=== PATIENT | female | born 1945 | race Caucasian/White ===

== ENCOUNTER 2018-08-09 09:26 | Emergency (ER) | payer MEDICARE, BC ==
--- NOTE | 2018-08-09 09:31 | EDM.PDOC ---
ED HPI GENERAL MEDICAL PROBLEM - General Chief Complaint: Bite:Animal, Insect Stated Complaint: CAT BITE Time Seen by Provider: 08/09/18 09:28 Source of Information: Reports: Patient, Family, RN, RN Notes Reviewed History Limitations: Reports: No Limitations - History of Present Illness INITIAL COMMENTS - FREE TEXT/NARRATIVE: Patient presents to the ED at [facility] for the evaluation of a cat bite to the palmar surface of the left hand. Patient states her found the cat with a jar stuck over its head. After the patient was able to removed the jar, the cat immediately bit her left hand. She did wash the affected area and put triple abx ointment on top. The hand has continued to swell and impede ROM 2 /2 to swelling. The cat is unknown to the patient. Immunization status is unknown to the patient. Left Hand Pain Score (Numeric/FACES): 1 - Related Data Allergies Allergy/AdvReac Type Severity Reaction Status Date / Time ezetimibe [From Zetia] Allergy Other Verified 08/09/18 09:40 simvastatin [From Zocor] Allergy Hives Verified 08/09/18 09:40 bupropion [From Wellbutrin] AdvReac Hypotension Verified 08/09/18 09:40 Home Meds: Home Meds Anastrozole [Arimidex] 1 tab PO DAILY 06/15/16 [History] Omeprazole 40 mg PO DAILY 06/15/16 [History] Amoxicillin/Clavulanate K [Augmentin 875-125 MG] 1 tab PO BID 10 Days #20 tablet 08/09/18 [Rx] Citalopram [Citalopram HBr] 20 mg PO DAILY 08/09/18 [History] Mirtazapine [Remeron] 15 mg PO BEDTIME 08/09/18 [History] Past Medical History HEENT History: Reports: Cataract Cardiovascular History: Reports: High Cholesterol Other Cardiovascular History: DYSLIPIDEMIA Respiratory History: Reports: None Gastrointestinal History: Reports: Colon Polyp, GERD Genitourinary History: Reports: None 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: Musculoskeletal History: Reports: None Psychiatric History: Reports: Anxiety, Depression Endocrine/Metabolic History: Reports: Diabetes, Type II Hematologic History: Reports: None Immunologic History: Reports: None Oncologic (Cancer) History: Reports: Breast Other Oncologic History: RIGHT BREAST CA Dermatologic History: Reports: Eczema - Past Surgical History HEENT Surgical History: Reports: Cataract Surgery, Other (See Below) Female Surgical History: Reports: Cervical Conization, LEEP Musculoskeletal Surgical History: Reports: Other (See Below) Social & Family History - Caffeine Use Caffeine Use: Reports: Coffee ED ROS GENERAL - Review of Systems Review Of Systems: See Below Constitutional: Denies: Fever, Chills Respiratory: Denies: Shortness of Breath, Cough Cardiovascular: Denies: Chest Pain, Palpitations GI/Abdominal: Denies: Abdominal Pain, Nausea, Vomiting Skin: Reports: Erythema, Wound Neurological: Reports: No Symptoms. Denies: Numbness, Paresthesia, Tingling ED EXAM, ANIMAL BITE - Physical Exam Exam: See Below Exam Limited By: No Limitations General Appearance: Alert, No Apparent Distress Respiratory/Chest: No Respiratory Distress, Lungs Clear, Normal Breath Sounds Cardiovascular: Normal Peripheral Pulses, Regular Rate, Rhythm Peripheral Pulses: 2+: Radial (L), Radial (R) GI/Abdominal: Normal Bowel Sounds, Soft, Non-Tender Extremities: Increased Warmth, Redness, Other (swelling of left hand; puncture wounds intact; no evidence of infection; area warm; no drainage) Neurological: Alert, Oriented Skin Exam: Normal Color, Warm/Dry Lymphadenopathy: Bilateral: No Adenopathy Course - Vital Signs Last Recorded V/S: Last Vital Signs Temp 37.2 C 08/09/18 09:28 Pulse 86 08/09/18 09:28 Resp 16 08/09/18 09:28 BP 142/69 H 08/09/18 09:28 Pulse Ox 97 08/09/18 09:28 - Orders/Labs/Meds Orders: Active Orders 24 hr Category Date Time Status Vaccines to be Administered [RC] PER UNIT ROUTINE Care 08/09/18 09:50 Active Vaccines to be Administered [RC] PER UNIT ROUTINE Care 08/09/18 10:11 Ordered Rabies Vaccine (Ta) [RabAvert] Med 08/09/18 10:11 Once 2.5 unit IM .ONCE ONE Meds: Medications Discontinued Medications Generic Name Dose Route Start Last Admin Trade Name Freq PRN Reason Stop Dose Admin Diphtheria/Tetanus/Acell Pertussis 0.5 ml 08/09/18 09:50 Adacel IM 08/09/18 09:51 .ONCE ONE Rabies Immune Globulin 1,500 unit 08/09/18 10:06 Hyperrab S/D IM 08/09/18 10:07 ONETIME ONE Departure - Departure Time of Disposition: 09:44 Disposition: Home, Self-Care 01 Condition: Good Clinical Impression: Cat bite of hand Qualifiers: Encounter type: initial encounter Laterality: left Qualified Code(s): S61.452A - Open bite of left hand, initial encounter - Discharge Information *PRESCRIPTION DRUG MONITORING PROGRAM REVIEWED*: Not Applicable *COPY OF PRESCRIPTION DRUG MONITORING REPORT IN PATIENT CNOSTANTINO: Not Applicable Prescriptions: Amoxicillin/Clavulanate K [Augmentin 875-125 MG] 1 tab PO BID 10 Days #20 tablet Instructions: Animal Bite Referrals: Bianka Mcmillan, [Primary Care Provider] - Forms: ED Department Discharge Additional Instructions: 1. Stay well hydrated and rest 2. Take antibiotics for the full coarse, even if you are feeling better 3. See Dr. Mcmillan next week for a recheck to make sure everything is going well 4. You will need to return to [facility] on August 12, August 16, and August 23 for the remainder of the rabies injections - Problem List Review Problem List Initiated/Reviewed/Updated: Yes - My Orders Last 24 Hours: My Active Orders 08/09/18 09:50 Vaccines to be Administered [RC] PER UNIT ROUTINE 08/09/18 10:11 Vaccines to be Administered [RC] PER UNIT ROUTINE Rabies Vaccine (Ta) [RabAvert] 2.5 unit IM .ONCE ONE - Assessment/Plan Last 24 Hours: My Active Orders 08/09/18 09:50 Vaccines to be Administered [RC] PER UNIT ROUTINE 08/09/18 10:11 Vaccines to be Administered [RC] PER UNIT ROUTINE Rabies Vaccine (Ta) [RabAvert] 2.5 unit IM .ONCE ONE Assessment:: Cat bite Plan: Discussed exam findings with patient. Per guidelines, will start patient on Augmentin BID for 10 days. Recommend taking a probiotic. Follow up with PCP next week for a recheck, sooner if problems.
[2018-08-09 09:39] VITALS: BP 142/69
[2018-08-09] MEDS ORDERED: Diphtheria,Pertussis(Acell),Tetanus Vaccine 0.5 ML Syringe IM ONE (09:50)
[2018-08-09] MEDS ORDERED: Rabies Immune Globulin PF 150 Units/ML 10 ML SDV IM ONE (10:06)
[2018-08-09] MEDS ORDERED: Rabies Vaccine (Avian) 2.5 Unit Inj Kit IM ONE (10:11)
== END 2018-08-09 10:46 | disposition home or self-care (01) ==
LOC: VM.ED 09:26
DX: S61.452A Open bite of left hand, initial encounter (principal); Z23 Encounter for immunization; F41.9 Anxiety disorder, unspecified; F32.9 Major depressive disorder, single episode, unspecified; E11.9 Type 2 diabetes mellitus without complications; Z79.899 Other long term (current) drug therapy; Z88.8 Allergy status to other drugs, medicaments and biological substances; W55.01XA Bitten by cat, initial encounter
CPT/HCPCS: 90375; 90471; 90675; 90715; 96372; 99283

== ENCOUNTER 2018-09-16 22:10 | Emergency (ER) | payer MEDICARE, BC ==
[2018-09-16] MEDS ORDERED: Sodium Chloride 0.9% 10 ML Syringe FLUSH PRN (22:23)
--- NOTE | 2018-09-16 22:39 | EDM.PDOC ---
ED HPI GENERAL MEDICAL PROBLEM - General Chief Complaint: Neurological Problem Time Seen by Provider: 09/16/18 22:10 Source of Information: Reports: Patient History Limitations: Reports: No Limitations - History of Present Illness INITIAL COMMENTS - FREE TEXT/NARRATIVE: PtBeny presents to ER with complaints of severe L sided upper and lower extremity weakness and paresthesia. States that the symptoms started at 2044. She states that she was walking at onset, stumbled and fell. She states that she was able to get to her chair. She states that the symptoms began to resolve, but she called 911. She states that the symptoms got worse again while she was waiting for EMS [place] No head trauma. No chest pain or shortness of breath. Denies any history of prior CVA or other neurological problems. She is not anticoagulated. She has been alert and oriented. Denies any nausea or vomiting. Onset: Today Onset Date: 09/16/18 Onset Time: 20:45 Location: Reports: Head, Upper Extremity, Left, Lower Extremity, Left, Generalized Associated Symptoms: Reports: Weakness - Related Data Allergies Allergy/AdvReac Type Severity Reaction Status Date / Time ezetimibe [From Zetia] Allergy Other Verified 09/16/18 22:36 simvastatin [From Zocor] Allergy Hives Verified 09/16/18 22:36 bupropion [From Wellbutrin] AdvReac Hypotension Verified 09/16/18 22:36 Home Meds: Home Meds Anastrozole [Arimidex] 1 tab PO DAILY 06/15/16 [History] Omeprazole 40 mg PO DAILY 06/15/16 [History] Citalopram [Citalopram HBr] 20 mg PO DAILY 08/09/18 [History] Mirtazapine [Remeron] 15 mg PO BEDTIME 08/09/18 [History] Vits A,C,E/Lutein/Minerals [Vision Formula with Lutein Tab] 1 each PO DAILY 11/01 [History] Past Medical History HEENT History: Reports: Cataract Cardiovascular History: Reports: High Cholesterol Other Cardiovascular History: DYSLIPIDEMIA Respiratory History: Reports: None Gastrointestinal History: Reports: Colon Polyp, GERD Genitourinary History: Reports: 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 History: Reports: None Psychiatric History: Reports: Anxiety, Depression Endocrine/Metabolic History: Reports: Diabetes, Type II Hematologic History: Reports: None Immunologic History: Reports: None Oncologic (Cancer) History: Reports: Breast Other Oncologic History: RIGHT BREAST CA Dermatologic History: Reports: Eczema - Past Surgical History Head Surgeries/Procedures: Reports: None HEENT Surgical History: Reports: Cataract Surgery, Other (See Below) Female Surgical History: Reports: Cervical Conization, LEEP Neurological Surgical History: Reports: None Musculoskeletal Surgical History: Reports: Other (See Below) Social & Family History - Caffeine Use Caffeine Use: Reports: Coffee ED ROS GENERAL - Review of Systems Review Of Systems: See Below Constitutional: Reports: No Symptoms HEENT: Reports: No Symptoms Respiratory: Reports: No Symptoms Cardiovascular: Reports: No Symptoms Endocrine: Reports: No Symptoms GI/Abdominal: Reports: No Symptoms : Reports: No Symptoms Musculoskeletal: Reports: No Symptoms Skin: Reports: No Symptoms Neurological: Reports: Paresthesia Psychiatric: Reports: No Symptoms Hematologic/Lymphatic: Reports: No Symptoms Immunologic: Reports: No Symptoms ED EXAM, GENERAL - Physical Exam Exam: See Below Exam Limited By: No Limitations General Appearance: Alert, WD/WN, No Apparent Distress Eye Exam: Bilateral Eye: EOMI, Globe Laceration, Normal Fundi, PERRL Ears: Normal External Exam, Hearing Grossly Normal Throat/Mouth: Normal Inspection, Normal Lips, Normal Teeth, Normal Gums, Normal Oropharynx, Normal Voice, No Airway Compromise Head: Atraumatic, Normocephalic Neck: Normal Inspection, Supple, Non-Tender, Full Range of Motion Respiratory/Chest: No Respiratory Distress, Lungs Clear, Normal Breath Sounds, No Accessory Muscle Use, Chest Non-Tender Cardiovascular: Normal Peripheral Pulses, Regular Rate, Rhythm, No Edema, No Gallop, No JVD, No Murmur, No Rub Peripheral Pulses: 4+: Radial (L), Radial (R), Posterior Tibial (L), Posterior Tibial (R) GI/Abdominal: Normal Bowel Sounds, Soft, Non-Tender, No Organomegaly, No Distention, No Mass (Female) Exam: Deferred Rectal (Female) Exam: Deferred Back Exam: Normal Inspection, Full Range of Motion, NT Extremities: Normal Inspection, Normal Range of Motion, Non-Tender, Normal Capillary Refill, No Pedal Edema Neurological: Alert, Oriented, CN II-XII Intact, Normal Cognition, Normal Gait, Normal Reflexes, Sensory/Motor Deficit Psychiatric: Normal Affect, Normal Mood Skin Exam: Warm, Dry, Intact, Normal Color, No Rash EKG INTERPRETATION Rhythm: NSR [place]: Normal P-Wave: Present QRS: Normal ST-T: Normal QT: Normal Course - Orders/Labs/Meds Orders: Active Orders 24 hr Category Date Time Status EKG Documentation Completion [RC] STAT Care 09/16/18 22:23 Ordered Chest 1V Frontal [CR] Stat Exams 09/16/18 22:25 Ordered Head wo Cont [CT] Stat Exams 09/16/18 22:05 Ordered COMPREHENSIVE METABOLIC PN,CMP [CHEM] Stat Lab 09/16/18 22:23 Ordered CRP [C-REACTIVE PROTEIN] [CHEM] Stat Lab 09/16/18 22:24 Ordered CULTURE BLOOD [BC] Stat Lab 09/16/18 22:25 Ordered CULTURE BLOOD [BC] Stat Lab 09/16/18 22:25 Ordered INR,PT,PROTHROMBIN TIME [COAG] Stat Lab 09/16/18 22:23 Ordered LACTIC ACID [CHEM] Stat Lab 09/16/18 22:24 Ordered MAGNESIUM [CHEM] Stat Lab 09/16/18 22:25 Ordered PHOSPHORUS [CHEM] Stat Lab 09/16/18 22:25 Ordered TROPONIN I [CHEM] Stat Lab 09/16/18 22:23 Ordered TSH ULTRASENSITIVE [CHEM] Stat Lab 09/16/18 22:24 Ordered UA W/MICROSCOPIC [URIN] Stat Lab 09/16/18 22:25 Ordered Sodium Chloride 0.9% [Saline Flush] Med 09/16/18 22:23 Ordered 10 ml FLUSH ASDIRECTED PRN Blood Culture x2 Reflex Set [OM.PC] Stat Oth 09/16/18 22:24 Ordered Peripheral IV Insertion Adult [OM.PC] Routine Oth 09/16/18 22:24 Ordered Medication Orders Sodium Chloride (Saline Flush) 10 ml FLUSH ASDIRECTED PRN PRN Reason: Keep Vein Open Labs: Laboratory Tests 09/16/18 09/16/18 Range/Units 22:28 22:40 WBC 5.8 (4.0-10.0) x10^3/uL RBC 4.28 (4.00-5.50) x10^6/uL Hgb 12.8 (12.0-16.0) g/dL Hct 38.7 (33.0-47.0) % MCV 90.4 (78.0-93.0) fL MCH 29.9 (26.0-32.0) pg MCHC 33.1 (32.0-36.0) g/dL RDW Coeff of Nathaniel 12.6 (10.0-15.0) % Plt Count 228 (130-400) x10^3/uL Neut % (Auto) 63.5 (50.0-80.0) % Lymph % (Auto) 21.3 L (25.0-50.0) % [place] % (Auto) 11.0 (2.0-11.0) % Eos % (Auto) 3.3 (0.0-4.0) % Baso % (Auto) 0.9 (0.2-1.2) % POC Glucose 139 H (74-106) mg/dL Meds: Medications Generic Name Dose Route Start Last Admin Trade Name Freq PRN Reason Stop Dose Admin Sodium Chloride 10 ml 09/16/18 22:23 Saline Flush FLUSH ASDIRECTED PRN Keep Vein Open - Radiology Interpretation Free Text/Narrative:: CT brain without contrast was negative for acute pathology. Departure - Departure Time of Disposition: 23:07 Disposition: DC/Tfer to Acute Hospital 02 Condition: Good Clinical Impression: TIA (transient ischemic attack) - Discharge Information Referrals: Bianka Mcmillan DO [Primary Care Provider] - Forms: ED Department Discharge, Interfacility Transfer EMTALA - Problem List Review Problem List Initiated/Reviewed/Updated: Yes - My Orders Last 24 Hours: My Active Orders 09/16/18 22:05 Head wo Cont [CT] Stat 09/16/18 22:23 EKG Documentation Completion [RC] STAT COMPREHENSIVE METABOLIC PN,CMP [CHEM] Stat INR,PT,PROTHROMBIN TIME [COAG] Stat TROPONIN I [CHEM] Stat Sodium Chloride 0.9% [Saline Flush] 10 ml FLUSH ASDIRECTED PRN 09/16/18 22:24 CRP [C-REACTIVE PROTEIN] [CHEM] Stat LACTIC ACID [CHEM] Stat TSH ULTRASENSITIVE [CHEM] Stat Blood Culture x2 Reflex Set [OM.PC] Stat Peripheral IV Insertion Adult [OM.PC] Routine 09/16/18 22:25 Chest 1V Frontal [CR] Stat CULTURE BLOOD [BC] Stat CULTURE BLOOD [BC] Stat MAGNESIUM [CHEM] Stat PHOSPHORUS [CHEM] Stat UA W/MICROSCOPIC [URIN] Stat - Assessment/Plan Last 24 Hours: My Active Orders 09/16/18 22:05 Head wo Cont [CT] Stat 09/16/18 22:23 EKG Documentation Completion [RC] STAT COMPREHENSIVE METABOLIC PN,CMP [CHEM] Stat INR,PT,PROTHROMBIN TIME [COAG] Stat TROPONIN I [CHEM] Stat Sodium Chloride 0.9% [Saline Flush] 10 ml FLUSH ASDIRECTED PRN 09/16/18 22:24 CRP [C-REACTIVE PROTEIN] [CHEM] Stat LACTIC ACID [CHEM] Stat TSH ULTRASENSITIVE [CHEM] Stat Blood Culture x2 Reflex Set [OM.PC] Stat Peripheral IV Insertion Adult [OM.PC] Routine 09/16/18 22:25 Chest 1V Frontal [CR] Stat CULTURE BLOOD [BC] Stat CULTURE BLOOD [BC] Stat MAGNESIUM [CHEM] Stat PHOSPHORUS [CHEM] Stat UA W/MICROSCOPIC [URIN] Stat Assessment:: TIA L sided upper and lower extremity weakness, L sided facial droop Plan: Pt. transferred via [facility] ground ambulance. Dr. Nuno, neurology was consulted. She will not receive TPA as her symptoms are resolving. Her NIH stroke scale was 1 during her entire stay. Permissive hypertension, as her symptoms are resolving. She will be a stroke code at [facility].
[2018-09-16 23:27] LABS: CHLORIDE,CL 103 mmol/L (98-107); SODIUM,NA 141 mmol/L (136-145)
[2018-09-16 23:31] LABS: ANION GAP 17.1 mmol/L (10-20)
--- NOTE | 2018-09-17 07:58 | CT ---
[id number] CT/CT Head WO IV EXAM: NONCONTRAST HEAD CT INDICATION: STROKE CODE. COMPARISON: None. DISCUSSION: There is mild generalized atrophy. Mild multifocal white matter hypoattenuation is nonspecific, but generally ascribed to chronic small vessel ischemia. No mass effect or midline shift. No acute hemorrhage or extra-axial fluid collection. No acute territorial infarct is identified. Moderate right sphenoid sinus mucosal thickening. IMPRESSION: 1. No acute intracranial findings. Severiano Donald MD 09/17/18 [phone] Thank you for allowing us to participate in the care of your patient.
--- NOTE | 2018-09-17 08:04 | CR ---
[id number] RAD/RAD Chest PA or AP 1V EXAM: FRONTAL CHEST INDICATION: Fever and stroke like symptoms. COMPARISON: None. DISCUSSION: The lungs are borderline hyperinflated. The heart is mildly enlarged without evidence of congestive heart failure. No acute infiltrates are identified. Right mastectomy and axillary lymph node resection. A moderate hiatus hernia is suggested. IMPRESSION: 1. No acute findings. Severiano Donald MD 09/17/18 0803 Thank you for allowing us to participate in the care of your patient.
== END 2018-09-16 23:15 | disposition short-term general hospital (02) ==
LOC: VM.ED 22:10
DX: G45.9 Transient cerebral ischemic attack, unspecified (principal); I69.892 Facial weakness following other cerebrovascular disease; E78.00 Pure hypercholesterolemia, unspecified; F41.9 Anxiety disorder, unspecified; F32.9 Major depressive disorder, single episode, unspecified; E11.9 Type 2 diabetes mellitus without complications; Z79.899 Other long term (current) drug therapy
CPT/HCPCS: 36415; 70450; 71045; 80053; 82962; 83605; 83735; 84100; 84443; 84484; 85025; 85610; 86140; 87040; 93005; 93010; 99284-GF; 99285-25

== ENCOUNTER 2019-06-16 10:20 | Day surgery (SDC) | payer MEDICARE, BC ==
[~2019-06-16 10:20] MED LIST: Lactated Ringers 1,000 ML IV SCH; Sodium Chloride 0.9% 10 ML Syringe FLUSH PRN
[2019-06-16] MEDS ORDERED: Propofol 200 MG/20 ML SDV ONE ×2 (11:03→11:58)
[2019-06-16] MEDS ORDERED: fentaNYL 100 MCG/2 ML SDV ONE (11:03)
[2019-06-16] MEDS ORDERED: Atropine 0.4 MG/ML SDV ONE (11:56)
[2019-06-16 12:54] VITALS: BP 138/66; PULSE 54
--- NOTE | 2019-06-16 18:25 | OR ---
PREOPERATIVE DIAGNOSIS: History of colon polyps. POSTOPERATIVE DIAGNOSIS: History of colon polyps. PROCEDURE PERFORMED: Colonoscopy. INDICATION: The patient is a 74-year-old female with a history of colon polyps in the past who presents for repeat colonoscopy at this time. PROCEDURE IN DETAIL: This was done in the procedure room. Sedation was given per Anesthesia. She was placed in left lateral position. First, a rectal exam was done, was normal. Scope was introduced into the rectum, slowly advanced through the rectum, sigmoid, descending, transverse, and ascending colon until the cecum was reached. Upon reaching the cecum, scope was slowly withdrawn looking at all mucosal surface on the way out. No mucosal abnormalities, lesions, or polyps were noted. FINAL DIAGNOSIS: Normal colonoscopy. BKD: 06/16/2019 12:07:15 MODL: 06/16/2019 18:15:56 /[id number]
== END 2019-06-16 13:15 | disposition home or self-care (01) ==
LOC: VM.SDS 10:20
PROVIDERS: ATTEND Surgery
DX: Z12.11 Encounter for screening for malignant neoplasm of colon (principal); K21.9 Gastro-esophageal reflux disease without esophagitis; M19.019 Primary osteoarthritis, unspecified shoulder; E78.5 Hyperlipidemia, unspecified; E03.9 Hypothyroidism, unspecified; E11.9 Type 2 diabetes mellitus without complications; F32.5 Major depressive disorder, single episode, in full remission; E66.9 Obesity, unspecified; Z86.010 Personal history of colon polyps; Z79.899 Other long term (current) drug therapy; Z79.82 Long term (current) use of aspirin; Z68.33 Body mass index [BMI] 33.0-33.9, adult
CPT/HCPCS: 45378; J0461; J2704; J3010; J7120